=== PATIENT | female | born 1930 | race Caucasian/White ===

== ENCOUNTER → 2017-07-27 | Outpatient (CLI) | payer MEDICARE, BC ==
[~2017-07-27] MED LIST: ASPI81TA82 PO; COZA50TA PO; FOLI400T30 PO; FURO8SOL PO; METO50 PO; PRAV20 PO; RIVA20 PO; VITA400C70 PO; [UNRECOGNIZED DRUG - OTHER] PO
--- NOTE | 2017-08-06 09:23 | RSPPFT ---
DATE OF PROCEDURE: 07/27/17 COMMENTS: VOLUMES DYNAMIC: FVC and FEV1 normal. STATIC: TLC, RV and FRC normal. FLOWS: FEV1% mildly reduced; FEF 25-75 mildly reduced. DIFFUSION: Normal. FLOW VOLUME LOOP: Essentially normal configuration. IMPRESSION: Essentially normal pulmonary function. There may be mild airways obstruction although, for the age, it is probably completely normal. There is mild improvement post-bronchodilator, no reduction in diffusion, no significant hyperinflation.
== END ==
LOC: PHRSP 08:33
PROVIDERS: ATTEND Internal Medicine Interventional Cardiology
DX: R06.09 Other forms of dyspnea (principal); I27.20 Pulmonary hypertension, unspecified
CPT/HCPCS: 94060; 94726; 94729

== ENCOUNTER 2017-09-20 22:08 | Inpatient (IN) | payer MEDICARE, BC ==
[~2017-09-20] VITALS: Ht 165.1 cm; Wt 62.0 kg
[2017-09-20 22:16] VITALS: BP 180/96; PULSE 100; RESP 22; TEMP 97.7; O2SAT 97
[2017-09-20] MEDS ORDERED: SODIUM CHLOR 0.9% 1000 ML INJ 1,000 ML IV SCH (22:30)
--- NOTE | 2017-09-20 22:32 | PD ---
HPI Chief Complaint: Neuro Symptoms/ Deficits Time Seen by Provider: 22:17 Travel History International Travel<30 days: No Contact w/Intl Traveler<30days: No Traveled to known affect area: No History of Present Illness HPI 87-year-old female complaining of slurred speech and left-sided facial weakness. Patient states the symptoms started about an hour prior to arrival. Patient started having slurred speech and left-sided facial drooping. Patient denies any headache. Patient denies any visual change. Patient states that the slurring speech is getting better. Patient denies any chest pain or shortness of breath. Patient denies abdominal pain. Patient denies any focal weakness or numbness of extremity. Patient has history of atrial fibrillation and on Coumadin. Patient also has history hypertension, diabetes, hyperlipidemia. Patient is a nonsmoker. Patient has history TIA 6 years ago. Patient denies any recent fall or head injury. PFSH Past Medical History Arthritis: Yes Atrial Fibrillation: Yes Blood Disorders: No Anxiety: Yes Heart Rhythm Problems: Yes (a-fib) Cancer: No Cardiovascular Problems: Yes (CARDIOVERSION) High Cholesterol: Yes Chest Pain: No Congestive Heart Failure: No Diminished Hearing: No Endocrine: No Gastrointestinal Disorders: Yes GERD: No Glaucoma: No Genitourinary: Yes Hepatitis: No Hiatal Hernia: No Hypertension: Yes Immune Disorder: No Kidney Stones: No Musculoskeletal: Yes Neurologic: No Psychiatric: No Respiratory: No Immunizations Current: No Myocardial Infarction: No Renal Failure: No Thyroid Disease: No Ulcer: No ?: Not Menopausal: Yes Past Surgical History Abdominal Surgery: Yes Appendectomy: Yes Cholecystectomy: Yes Eye Surgery: Yes Genitourinary Surgery: Yes (BLADDER SUSPENSION) Gynecologic Surgery: Yes Hysterectomy: Yes Other Surgery: Yes Social History Alcohol Use: Yes (RARELY) Tobacco Use: No Substance Use: No Allergies-Medications (Allergen,Severity, Reaction): Coded Allergies: Sulfa (Sulfonamide Antibiotics) (Unverified Allergy, Severe, UNK, 09/20/17) penicillin G (Unverified Allergy, Severe, Hives, 09/20/17) Reported Meds & Prescriptions Reported Meds & Active Scripts Active Reported [phyto martha-mag plus] 1 Tab PO DAILY Folate (Folic Acid) 400 Mcg Tab 400 Mcg PO DAILY Xarelto 20 Mg Tab (Rivaroxaban) 20 Mg Tab 20 Mg PO DAILY Furosemide Oral Solution (Furosemide) 8 Mg/Ml Jewell 40 Mg PO DAILY Cozaar (Losartan Potassium) 50 Mg Tab 50 Mg PO DAILY Lopressor 50 Mg Tab (Metoprolol Tartrate) 50 Mg Tab 25 Mg PO BID Pravachol 20 Mg Tab (Pravastatin Sodium) 20 Mg Tab 20 Mg PO DAILY Aspir-81 (Aspirin) 81 Mg Tab 81 Mg PO DAILY Vitamin E 400 Units Cap 400 Units PO DAILY Review of Systems General / Constitutional: No: Fever Eyes: No: Visual changes HENT: No: Headaches Cardiovascular: No: Chest Pain or Discomfort Respiratory: No: Shortness of Breath Gastrointestinal: No: Abdominal Pain Genitourinary: No: Dysuria Musculoskeletal: No: Pain Skin: No Rash Neurologic: Positive: Weakness, Slurred Speech Psychiatric: No: Depression Endocrine: No: Polydipsia Hematologic/Lymphatic: No: Easy Bruising Physical Exam Narrative GENERAL: Well-nourished, well-developed patient. SKIN: Focused skin assessment warm/dry. HEAD: Normocephalic. EYES: No scleral icterus. No injection or drainage. NECK: Supple, trachea midline. No JVD or lymphadenopathy. CARDIOVASCULAR: Irregular irregular rate and rhythm without murmurs, gallops, or rubs. RESPIRATORY: Breath sounds equal bilaterally. No accessory muscle use. GASTROINTESTINAL: Abdomen soft, non-tender, nondistended. MUSCULOSKELETAL: No cyanosis, or edema. BACK: Nontender without obvious deformity. No CVA tenderness. Neurologic exam: Patient's awake and alert oriented 3. Patient has left facial weakness with not involving the forehead. Patient has mild slurred speech. Visual juarez intact. No obvious focal neurologic deficit of the extremity. Data Data Last Documented VS Vital Signs Date Time Temp Pulse Resp B/P (MAP) Pulse Ox O2 Delivery O2 Flow Rate FiO2 09/20/17 23:25 110 20 173/107 (129) 96 Nasal Cannula 2.00 09/20/17 22:16 97.7 Orders Orders Electrocardiogram (09/20/17 22:25) Complete Blood Count With Diff (09/20/17 22:25) Comprehensive Metabolic Panel (09/20/17 22:25) Prothrombin Time / Inr (Pt) (09/20/17 22:25) Act Partial Throm Time (Ptt) (09/20/17 22:25) Urinalysis - C+S If Indicated (09/20/17 22:25) Thyroid Stimulating Hormone (09/20/17 22:25) Chest, Single Ap (09/20/17 22:25) Iv Access Insert/Monitor (09/20/17 22:25) Ecg Monitoring (09/20/17 22:25) Oxygen Administration (09/20/17 22:25) Oximetry (09/20/17 22:25) [place] (09/20/17 22:25) Sodium Chlor 0.9% 1000 Ml Inj (Ns 1000 M (09/20/17 22:30) Ct Brain W/O Iv Contrast(Rout) (09/20/17 22:51) Consult Neurology (09/20/17 ) (Hub Use Only)Inp Phy Cons/Ref (09/20/17 ) Aspirin Supp (Aspirin Supp) (09/20/17 23:30) Type And Screen (09/20/17 23:18) Cta Brain W Iv Contrast W 3d (09/20/17 23:18) Cta Neck W Iv Contrast W 3d (09/20/17 23:18) Admit Order (Ed Use Only) (09/20/17 23:44) Labs Laboratory Tests Test 09/20/17 22:30 White Blood Count 7.9 TH/MM3 Red Blood Count 4.14 MIL/MM3 Hemoglobin 12.6 GM/DL Hematocrit 38.2 % Mean Corpuscular Volume 92.3 FL Mean Corpuscular Hemoglobin 30.4 PG Mean Corpuscular Hemoglobin Concent 33.0 % Red Cell Distribution Width 15.1 % Platelet Count 226 TH/MM3 Mean Platelet Volume 9.0 FL Neutrophils (%) (Auto) 62.9 % Lymphocytes (%) (Auto) 23.7 % Monocytes (%) (Auto) 7.8 % Eosinophils (%) (Auto) 4.4 % Basophils (%) (Auto) 1.2 % Neutrophils # (Auto) 5.0 TH/MM3 Lymphocytes # (Auto) 1.9 TH/MM3 Monocytes # (Auto) 0.6 TH/MM3 Eosinophils # (Auto) 0.3 TH/MM3 Basophils # (Auto) 0.1 TH/MM3 CBC Comment DIFF FINAL Differential Comment Prothrombin Time 12.3 SEC Prothromb Time International Ratio 1.2 RATIO Activated Partial Thromboplast Time 27.2 SEC Blood Urea Nitrogen 27 MG/DL Creatinine 1.39 MG/DL Random Glucose 111 MG/DL Total Protein 7.8 GM/DL Albumin 3.7 GM/DL Calcium Level 9.3 MG/DL Alkaline Phosphatase 125 U/L Aspartate Amino Transf (AST/SGOT) 38 U/L Alanine Aminotransferase (ALT/SGPT) 25 U/L Total Bilirubin 0.6 MG/DL Sodium Level 140 MEQ/L Potassium Level 4.1 MEQ/L Chloride Level 107 MEQ/L Carbon Dioxide Level 27.7 MEQ/L Anion Gap 5 MEQ/L Estimat Glomerular Filtration Rate 36 ML/MIN Thyroid Stimulating Hormone 3rd Gen 3.770 uIU/ML [facility] Medical Decision Making Medical Screen Exam Complete: Yes Emergency Medical Condition: Yes Interpretation(s) Last Impressions Head CT 09/20/17 3171 Signed Impressions: Service Date/Time: Wednesday, September 20, 2017 22:51 - CONCLUSION: 1. Atrophy and extensive chronic small vessel ischemic change. 2. No acute intracranial abnormality. Gui Cid Jr., MD 23:46 PM. CBC within normal limit. BUN 27. Creatinine 1.39. GFR 36. Glucose 111. TSH 3.77. INR 1.2. Differential Diagnosis Differential diagnosis including TIA, CVA. Narrative Course 87-year-old female with slurred speech and left-sided facial weakness. History of TIA in the past. Patient has history of atrial fibrillation and on Coumadin. Normal saline solution 100 cc an hour. O2 2 L nasal cannula. Head of bed flat. Dr. Gonzalez spoke with neurologist environmental technical officer Dr. Horn and family members. Dr. Horn advised TPA since INR is 1.2. Patient and family members does not want TPA. Dr. Horn was made aware of patient and family's decision. Advised admission, neuro check and MRI in the morning. Diagnosis Primary Impression: Acute CVA (cerebrovascular accident) Additional Impressions: Atrial fibrillation Qualified Codes: I48.2 - Chronic atrial fibrillation Chronic kidney disease (CKD) stage G3b/A3, moderately decreased glomerular filtration rate (GFR) between 30-44 mL/min/1.73 square meter and albuminuria creatinine ratio greater than 300 mg/g Admitting Information Admitting Physician Requests: Admit Lyle Ramirez MD Sep 20, 2017 22:32
[2017-09-20 22:54] LABS: BASOPHIL # 0.1 TH/MM3 (0-0.2); BASOPHIL % 1.2 % (0.0-2.0); EOSINOPHIL # 0.3 TH/MM3 (0-0.4); EOSINOPHIL % 4.4 % (0.0-4.0); HEMATOCRIT 38.2 % (35.0-46.0); HEMOGLOBIN 12.6 GM/DL (11.6-15.3); LYMPH % 23.7 % (9.0-44.0); LYMPHOCYTE # 1.9 TH/MM3 (1.0-4.8); MEAN CELL VOLUME 92.3 FL (80.0-100.0); MEAN CORPUSCULAR HEMOGLOBIN 30.4 PG (27.0-34.0); MONO % 7.8 % (0.0-8.0); MONOCYTE # 0.6 TH/MM3 (0-0.9); NEUT % 62.9 % (16.0-70.0); PLATELET COUNT 226 TH/MM3 (150-450); RED BLOOD COUNT 4.14 MIL/MM3 (4.00-5.30); RED CELL DISTRIBUTION WIDTH 15.1 % (11.6-17.2); WHITE BLOOD COUNT 7.9 TH/MM3 (4.0-11.0)
[2017-09-20 22:59] LABS: INTERNATIONAL NORMALIZED RATIO 1.2 RATIO; PROTHROMBIN TIME - PATIENT 12.3 SEC (9.8-11.6)
[2017-09-20 23:04] LABS: ALBUMIN 3.7 GM/DL (3.4-5.0); ALT (GPT) 25 U/L (10-53); AST (GOT) 38 U/L (15-37); BICARBONATE 27.7 MEQ/L (21.0-32.0); BLOOD UREA NITROGEN 27 MG/DL (7-18); CALCIUM 9.3 MG/DL (8.5-10.1); CHLORIDE 107 MEQ/L (98-107); CREATININE 1.39 MG/DL (0.50-1.00); GLOMERULAR FILTRATION RATE 36 ML/MIN (>89); GLUCOSE,RANDOM 111 MG/DL (74-106); SODIUM (NA) 140 MEQ/L (136-145)
[2017-09-20 23:06] VITALS: BP 167/101; PULSE 110; RESP 20; O2SAT 97
[2017-09-20 23:11] VITALS: RESP 14; O2SAT 98
[2017-09-20 23:14] LABS: ALKALINE PHOSPHATASE 125 U/L (45-117); TOTAL BILIRUBIN ADULT 0.6 MG/DL (0.2-1.0); TOTAL PROTEIN 7.8 GM/DL (6.4-8.2)
--- NOTE | 2017-09-20 23:17 | RADRPT ---
EXAM DATE/TIME: 09/20/2017 22:51 [facility] COMPARISON: No previous studies available for comparison. INDICATIONS : Stroke alert, altered mental status, aphasia. RADIATION DOSE: 33.52 CTDIvol (mGy) This report was called by Dr Cid to DENISA Soto at 2314 MEDICAL HISTORY : Hypertension. Cardiovascular disease SURGICAL HISTORY : Hysterectomy. ENCOUNTER: Initial ACUITY: 1 day PAIN SCALE: Non-responsive LOCATION: Bilateral head TECHNIQUE: Multiple contiguous axial images were obtained of the head. Using automated exposure control and adj ustment of the mA and/or kV according to patient size, radiation dose was kept as low as reasonably a chievable to obtain optimal diagnostic quality images. DICOM format image data is available electro nically for review and comparison. FINDINGS: CEREBRUM: Atrophy. This results in prominence of the overlying sulcal pattern in both cerebral hemispheres. Ext ensive periventricular low attenuation change involving both cerebral hemispheres. This is symmetrica l. No hemorrhage, acute infarction, or mass observed. POSTERIOR FOSSA: The cerebellum and brainstem are intact. The 4th ventricle is midline. The cerebellopontine angle i s unremarkable. EXTRACRANIAL: The visualized portion of the orbits is intact. SKULL: The calvaria is intact. No evidence of skull fracture. CONCLUSION: 1. Atrophy and extensive chronic small vessel ischemic change. 2. No acute intracranial abnormality. Gui Cid Jr., MD on September 20, 2017 at 23:11 Board Certified Radiologist. This report was verified electronically.
[2017-09-20 23:25] VITALS: BP 173/107; PULSE 110; RESP 20; O2SAT 96
[2017-09-20] MEDS ORDERED: ASPIRIN 300 MG SUPP RECTAL ONE (23:30)
--- NOTE | 2017-09-20 23:41 | PD ---
Data Data Last Documented VS Vital Signs Date Time Temp Pulse Resp B/P (MAP) Pulse Ox O2 Delivery O2 Flow Rate FiO2 09/20/17 23:25 110 20 173/107 (129) 96 Nasal Cannula 2.00 09/20/17 22:16 97.7 Orders Orders Electrocardiogram (09/20/17 22:25) Complete Blood Count With Diff (09/20/17 22:25) Comprehensive Metabolic Panel (09/20/17 22:25) Prothrombin Time / Inr (Pt) (09/20/17 22:25) Act Partial Throm Time (Ptt) (09/20/17 22:25) Urinalysis - C+S If Indicated (09/20/17 22:25) Thyroid Stimulating Hormone (09/20/17 22:25) Chest, Single Ap (09/20/17 22:25) Iv Access Insert/Monitor (09/20/17 22:25) Ecg Monitoring (09/20/17 22:25) Oxygen Administration (09/20/17 22:25) Oximetry (09/20/17 22:25) [place] (09/20/17 22:25) Sodium Chlor 0.9% 1000 Ml Inj (Ns 1000 M (09/20/17 22:30) Ct Brain W/O Iv Contrast(Rout) (09/20/17 22:51) Consult Neurology (09/20/17 ) (Hub Use Only)Inp Phy Cons/Ref (09/20/17 ) Aspirin Supp (Aspirin Supp) (09/20/17 23:30) Type And Screen (09/20/17 23:18) Cta Brain W Iv Contrast W 3d (09/20/17 23:18) Cta Neck W Iv Contrast W 3d (09/20/17 23:18) Admit Order (Ed Use Only) (09/20/17 23:44) Labs Laboratory Tests Test 09/20/17 22:30 White Blood Count 7.9 TH/MM3 Red Blood Count 4.14 MIL/MM3 Hemoglobin 12.6 GM/DL Hematocrit 38.2 % Mean Corpuscular Volume 92.3 FL Mean Corpuscular Hemoglobin 30.4 PG Mean Corpuscular Hemoglobin Concent 33.0 % Red Cell Distribution Width 15.1 % Platelet Count 226 TH/MM3 Mean Platelet Volume 9.0 FL Neutrophils (%) (Auto) 62.9 % Lymphocytes (%) (Auto) 23.7 % Monocytes (%) (Auto) 7.8 % Eosinophils (%) (Auto) 4.4 % Basophils (%) (Auto) 1.2 % Neutrophils # (Auto) 5.0 TH/MM3 Lymphocytes # (Auto) 1.9 TH/MM3 Monocytes # (Auto) 0.6 TH/MM3 Eosinophils # (Auto) 0.3 TH/MM3 Basophils # (Auto) 0.1 TH/MM3 CBC Comment DIFF FINAL Differential Comment Prothrombin Time 12.3 SEC Prothromb Time International Ratio 1.2 RATIO Activated Partial Thromboplast Time 27.2 SEC Blood Urea Nitrogen 27 MG/DL Creatinine 1.39 MG/DL Random Glucose 111 MG/DL Total Protein 7.8 GM/DL Albumin 3.7 GM/DL Calcium Level 9.3 MG/DL Alkaline Phosphatase 125 U/L Aspartate Amino Transf (AST/SGOT) 38 U/L Alanine Aminotransferase (ALT/SGPT) 25 U/L Total Bilirubin 0.6 MG/DL Sodium Level 140 MEQ/L Potassium Level 4.1 MEQ/L Chloride Level 107 MEQ/L Carbon Dioxide Level 27.7 MEQ/L Anion Gap 5 MEQ/L Estimat Glomerular Filtration Rate 36 ML/MIN Thyroid Stimulating Hormone 3rd Gen 3.770 uIU/ML [facility] Medical Record Reviewed: Yes Supervised Visit with KATHIA: No Interpretation(s) Vital Signs Date Time Temp Pulse Resp B/P (MAP) Pulse Ox O2 Delivery O2 Flow Rate FiO2 09/20/17 23:25 110 20 173/107 (129) 96 Nasal Cannula 2.00 09/20/17 23:11 14 98 Nasal Cannula 2.00 09/20/17 23:06 110 20 167/101 (123) 97 Nasal Cannula 2.00 09/20/17 23:04 100 Nasal Cannula 2.00 09/20/17 22:20 22 09/20/17 22:16 97.7 100 22 180/96 (124) 97 Laboratory Tests Test 09/20/17 22:30 White Blood Count 7.9 TH/MM3 (4.0-11.0) Red Blood Count 4.14 MIL/MM3 (4.00-5.30) Hemoglobin 12.6 GM/DL (11.6-15.3) Hematocrit 38.2 % (35.0-46.0) Mean Corpuscular Volume 92.3 FL (80.0-100.0) Mean Corpuscular Hemoglobin 30.4 PG (27.0-34.0) Mean Corpuscular Hemoglobin Concent 33.0 % (32.0-36.0) Red Cell Distribution Width 15.1 % (11.6-17.2) Platelet Count 226 TH/MM3 (150-450) Mean Platelet Volume 9.0 FL (7.0-11.0) Neutrophils (%) (Auto) 62.9 % (16.0-70.0) Lymphocytes (%) (Auto) 23.7 % (9.0-44.0) Monocytes (%) (Auto) 7.8 % (0.0-8.0) Eosinophils (%) (Auto) 4.4 % (0.0-4.0) Basophils (%) (Auto) 1.2 % (0.0-2.0) Neutrophils # (Auto) 5.0 TH/MM3 (1.8-7.7) Lymphocytes # (Auto) 1.9 TH/MM3 (1.0-4.8) Monocytes # (Auto) 0.6 TH/MM3 (0-0.9) Eosinophils # (Auto) 0.3 TH/MM3 (0-0.4) Basophils # (Auto) 0.1 TH/MM3 (0-0.2) CBC Comment DIFF FINAL Differential Comment Prothrombin Time 12.3 SEC (9.8-11.6) Prothromb Time International Ratio 1.2 RATIO Activated Partial Thromboplast Time 27.2 SEC (24.3-30.1) Blood Urea Nitrogen 27 MG/DL (7-18) Creatinine 1.39 MG/DL (0.50-1.00) Random Glucose 111 MG/DL (74-106) Total Protein 7.8 GM/DL (6.4-8.2) Albumin 3.7 GM/DL (3.4-5.0) Calcium Level 9.3 MG/DL (8.5-10.1) Alkaline Phosphatase 125 U/L (45-117) Aspartate Amino Transf (AST/SGOT) 38 U/L (15-37) Alanine Aminotransferase (ALT/SGPT) 25 U/L (10-53) Total Bilirubin 0.6 MG/DL (0.2-1.0) Sodium Level 140 MEQ/L (136-145) Potassium Level 4.1 MEQ/L (3.5-5.1) Chloride Level 107 MEQ/L (98-107) Carbon Dioxide Level 27.7 MEQ/L (21.0-32.0) Anion Gap 5 MEQ/L (5-15) Estimat Glomerular Filtration Rate 36 ML/MIN (>89) Thyroid Stimulating Hormone 3rd Gen 3.770 uIU/ML (0.358-3.740) Last Impressions Head CT 09/20/17 2251 Signed Impressions: Service Date/Time: Wednesday, September 20, 2017 22:51 - CONCLUSION: 1. Atrophy and extensive chronic small vessel ischemic change. 2. No acute intracranial abnormality. Gui Cid Jr., MD Narrative Course Was called to bedside as patient began to have stroke like symptoms. Dr. Ramirez initially saw patient - he currently is in a trauma alert Patient is an 87-year-old female who initially came to the emergency room with complaints of slurring of speech and left sided facial droop which lasted for an hour. Pateint had complete resolution of symptoms upon arrival to the emergency room. I was called to the room at 2248 as patient began to have speech deficits and left-sided facial droop. Patient's NIH scale was 10. Stroke alert was called overhead, patient was brought onto CAT scan. CT of the head was negative for intracranial hemorrhage. Patient's INR is 1.2, she is on Coumadin as she has history of atrial fibrillation. INR is 1.2. CBC & BMP Diagram 09/20/17 22:30 Total Protein 7.8, Albumin 3.7, Calcium Level 9.3, Alkaline Phosphatase 125 H, Aspartate Amino Transf (AST/SGOT) 38 H, Alanine Aminotransferase (ALT/SGPT) 25, Total Bilirubin 0.6 Ct of head with no intracranial hemorrhage. I discussed case with Dr. [id number], neurologist vocational training instructor. Patient is within the window for TPA, though patient would be at high risk for intracranial hemorrhage. If patient as well as family consent for TPA - will administer after signed consent. I did talk to patient who understands her diagnosis, understands that TPA candidate given her symptoms. Patient at this time refuses TPA. I also discussed with patient's son and daughters indications as well as contraindications for TPA, but family does not want to be given at this time. Rectal Aspirin ordered. Dr. Calvo request no other studies at this time Vanita Gonzalez DO Sep 20, 2017 23:41
[2017-09-20] MEDS ORDERED: METO50TA PO (23:52)
[2017-09-20] MEDS ORDERED: TRAM50TA PO (23:52)
[2017-09-20] MEDS ORDERED: WARF4TAB52 PO (23:52)
[2017-09-20] MEDS ORDERED: PRAV20TA2 PO (23:52)
[2017-09-20] MEDS ORDERED: POTA-163 PO (23:52)
[2017-09-20] MEDS ORDERED: FURO40TA PO (23:52)
[2017-09-20] MEDS ORDERED: WARF4TAB51 PO ×2 (23:52)
[2017-09-21] VITALS (15 sets, daily range): BP systolic 137–175; BP diastolic 82–114; PULSE 94–120; RESP 16–31; TEMP 97.3–98.9; O2SAT 91–97
--- NOTE | 2017-09-21 00:13 | RADRPT ---
EXAM DATE/TIME: 09/20/2017 23:44 [facility] COMPARISON: CHEST SINGLE AP, November 05, 2012, 23:57. INDICATIONS : Short of breath, CVA. MEDICAL HISTORY : None. SURGICAL HISTORY : None. ENCOUNTER: Initial ACUITY: 1 day PAIN SCORE: 0/10 LOCATION: Bilateral chest FINDINGS: A single portable frontal view the chest shows mild cardiomegaly. Chronic interstitial changes. No pn eumothorax or effusion. No intraalveolar infiltrate. A scoliotic and degenerative spine. Right harshil l head intramedullary tiburcio. CONCLUSION: 1. Cardiomegaly and chronic interstitial changes. 2. No acute intrathoracic abnormality. Gui Cid Jr., MD on September 21, 2017 at 0:11 Board Certified Radiologist. This report was verified electronically.
[2017-09-21] MEDS: SODIUM CHLOR 0.9% 1000 ML INJ 1,000 ML IV SCH ×2 (00:33→14:13)
--- NOTE | 2017-09-21 00:42 | HHI.HP ---
HPI Service Critical Care Medicine Primary Care Physician Unknown Admission Diagnosis acute CVA. Atrial fibrillation. On anticoagulation. Diagnosis: (1) Atrial fibrillation Diagnosis: Secondary (2) Bacteriuria Diagnosis: Secondary (3) Aphasia Diagnosis: Principal (4) HTN (hypertension) Diagnosis: Secondary (5) HLD (hyperlipidemia) Diagnosis: Secondary (6) CKD (chronic kidney disease) stage 3, GFR 30-59 ml/min Diagnosis: Secondary (7) Acute ischemic stroke Diagnosis: Principal (8) Warfarin anticoagulation Diagnosis: Secondary (9) TSH elevation Diagnosis: Secondary (10) Elevated AST (SGOT) Diagnosis: Secondary Travel History International Travel<30 Days: No Contact w/Intl Traveler <30 Da: No Traveled to Known Affected Are: No History of Present Illness 87-year-old female with past medical history of hypertension, atrial fibrillation on chronic anticoagulation with Coumadin, hyperlipidemia, prior tobacco abuse who presented to [facility] emergency department as a stroke alert. Her son states that she was sitting in a recliner around 9 pm and he was speaking to her and she did not respond but he thought she might be sleeping. Then she began to move around restlessly in the chair and had apparent aphasia and facial droop. [facility] was summoned and when they arrived her symptoms had completely resolved. She was speaking normally. Then she stood up and symptoms recurred so [facility] brought her in as a stroke alert. CT brain demonstrated atrophy with chronic small vessel ischemic changes. She is on warfarin but her INR was 1.2. Case was discussed with Dr. Horn who stated that TPA could be administered as long as patient and family accepting of increased risk of hemorrhage. Patient refused TPA. Dr. Horn recommended ASA and obtain MRI/MRA in the morning. Recommended against anticoagulation. Review of Systems ROS Limitations: Clinical Condition, Speech Impaired Past Family Social History Allergies: Coded Allergies: Sulfa (Sulfonamide Antibiotics) (Unverified Allergy, Severe, UNK, 09/20/17) penicillin G (Unverified Allergy, Severe, Hives, 09/20/17) Past Medical History Atrial fibrillation on chronic anticoagulation with warfarin Hypertension Hypercholesterolemia Arthritis Past Surgical History Cholecystectomy Bladder suspension Hysterectomy Dental implants Cataract surgery bilateral Reported Medications Warfarin. Her family was not clear on the dose of warfarin that she is currently on. Her pteyufzy-hi-lkx states she will bring it in tomorrow. Pravastatin 20 mill grams by mouth daily Metoprolol 50 g by mouth twice a day Tramadol 50 mg by mouth every 8 hours as needed for pain Potassium chloride 20 mEq ER by mouth daily Lasix 40 mill grams by mouth daily Calcium and magnesium supplement Family History Mother at age 89 of unknown cause Father in his 30s or 40s after motor vehicle crash A brother and sister both have Parkinson's 2 sisters of breast cancer Social History Smoked a pack of cigarettes per day for 40 years. 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 They were at bedside. Lives alone Physical Exam Vital Signs Vital Signs Date Time Temp Pulse Resp B/P (MAP) Pulse Ox O2 Delivery O2 Flow Rate FiO2 09/21/17 00:34 106 20 151/94 (113) 96 Nasal Cannula 2.00 09/20/17 23:25 110 20 173/107 (129) 96 Nasal Cannula 2.00 09/20/17 23:11 14 98 Nasal Cannula 2.00 09/20/17 23:06 110 20 167/101 (123) 97 Nasal Cannula 2.00 09/20/17 23:04 100 Nasal Cannula 2.00 09/20/17 22:20 22 09/20/17 22:16 97.7 100 22 180/96 (124) 97 Physical Exam GENERAL: Well-nourished well-developed elderly female who is sitting up in the ED stretcher, agitated and indicating that she needs to urinate. SKIN: Warm and dry, well perfused HEAD: Atraumatic. Normocephalic. EYES: Pupils equal and round, 2 mm and reactive bilaterally. No scleral icterus. No injection or drainage. ENT: No nasal bleeding or discharge. Mucous membranes pink and moist. NECK: Trachea midline. No JVD. CARDIOVASCULAR: Irregularly irregular with rate in the 110s. No murmurs rubs or gallops RESPIRATORY: Breathing comfortably with No accessory muscle use. Clear to auscultation. Breath sounds equal bilaterally. GASTROINTESTINAL: Abdomen soft, non-tender, nondistended. Bowel sounds present. MUSCULOSKELETAL: Extremities without clubbing, cyanosis, or edema. Deformities of toes on right foot. NEUROLOGICAL: Awake and alert. Aphasic, utters sounds only, no words. Extraocular movements are full. Visual juarez appear intact. Normal tongue protrusion. R facial droop. Strength 4+-5/5 biceps/triceps, 5/5 hip flexion/ hamstrings/ankle dorsiflexion/plantar flexion. No abnormal response to Babinski. She nods that sensation is intact. Laboratory Laboratory Tests Test 09/20/17 22:30 09/21/17 00:15 White Blood Count 7.9 Red Blood Count 4.14 Hemoglobin 12.6 Hematocrit 38.2 Mean Corpuscular Volume 92.3 Mean Corpuscular Hemoglobin 30.4 Mean Corpuscular Hemoglobin Concent 33.0 Red Cell Distribution Width 15.1 Platelet Count 226 Mean Platelet Volume 9.0 Neutrophils (%) (Auto) 62.9 Lymphocytes (%) (Auto) 23.7 Monocytes (%) (Auto) 7.8 Eosinophils (%) (Auto) 4.4 Basophils (%) (Auto) 1.2 Neutrophils # (Auto) 5.0 Lymphocytes # (Auto) 1.9 Monocytes # (Auto) 0.6 Eosinophils # (Auto) 0.3 Basophils # (Auto) 0.1 CBC Comment DIFF FINAL Differential Comment Prothrombin Time 12.3 Prothromb Time International Ratio 1.2 Activated Partial Thromboplast Time 27.2 Blood Urea Nitrogen 27 Creatinine 1.39 Random Glucose 111 Total Protein 7.8 Albumin 3.7 Calcium Level 9.3 Alkaline Phosphatase 125 Aspartate Amino Transf (AST/SGOT) 38 Alanine Aminotransferase (ALT/SGPT) 25 Total Bilirubin 0.6 Sodium Level 140 Potassium Level 4.1 Chloride Level 107 Carbon Dioxide Level 27.7 Anion Gap 5 Estimat Glomerular Filtration Rate 36 Thyroid Stimulating Hormone 3rd Gen 3.770 Result Diagram: 09/20/17222909/20/172229 Caprini VTE Risk Assessment Caprini VTE Risk Assessment: Mod/High Risk (score >= 2) VTE Pharm Contraindication: acute stroke with risk of hemorrhagic conversion. Caprini Risk Assessment Model Point Value = 1 Point Value = 2 Point Value = 3 Point Value = 5 Age 41-60 Minor surgery BMI > 25 kg/m2 Swollen legs Varicose veins or History of unexplained or recurrent spontaneous Oral contraceptives or hormone replacement Sepsis (< 1 month) Serious lung disease, including pneumonia (< 1 month) Abnormal pulmonary function Acute myocardial infarction Congestive heart failure (< 1 month) History of inflammatory bowel disease Medical patient at bed rest Age 61-74 Arthroscopic surgery Major open surgery (> 45 min) Laparoscopic surgery (> 45 min) Malignancy Confined to bed (> 72 hours) Immobilizing plaster cast Central venous access Age >= 75 History of VTE Family history of VTE Factor V Leiden Prothrombin [id number] Lupus anticoagulant Anticardiolipin antibodies Elevated serum homocysteine Heparin-induced thrombocytopenia Other congenital or acquired thrombophilia Stroke (< 1 month) Elective arthroplasty Hip, pelvis, or leg fracture Acute spinal cord injury (< 1 month) Prophylaxis Regimen Total Risk Factor Score Risk Level Prophylaxis Regimen 0-1 Low Early ambulation 2 Moderate Order ONE of the following: *Sequential Compression Device (SCD) *Heparin 5000 units SQ BID 3-4 Higher Order ONE of the following medications: *Heparin 5000 units SQ TID *Enoxaparin/Lovenox 40 mg SQ daily (WT < 150 kg, CrCl > 30 mL/min) *Enoxaparin/Lovenox 30 mg SQ daily (WT < 150 kg, CrCl > 10-29 mL/min) *Enoxaparin/Lovenox 30 mg SQ BID (WT < 150 kg, CrCl > 30 mL/min) AND/OR *Sequential Compression Device (SCD) 5 or more Highest Order ONE of the following medications: *Heparin 5000 units SQ TID (Preferred with Epidurals) *Enoxaparin/Lovenox 40 mg SQ daily (WT < 150 kg, CrCl > 30 mL/min) *Enoxaparin/Lovenox 30 mg SQ daily (WT < 150 kg, CrCl > 10-29 mL/min) *Enoxaparin/Lovenox 30 mg SQ BID (WT < 150 kg, CrCl > 30 mL/min) AND *Sequential Compression Device (SCD) Assessment and Plan Problem List: (1) Acute ischemic stroke ICD Code: I63.9 - Cerebral infarction, unspecified Status: Acute (2) Warfarin anticoagulation ICD Code: Z79.01 - long-term (current) use of anticoagulants Status: Chronic (3) Atrial fibrillation ICD Code: I48.91 - Unspecified atrial fibrillation Status: Chronic (4) HTN (hypertension) ICD Code: I10 - Essential (primary) hypertension Status: Chronic (5) HLD (hyperlipidemia) ICD Code: E78.5 - Hyperlipidemia, unspecified Status: Chronic (6) TSH elevation ICD Code: R94.6 - Abnormal results of thyroid function studies (7) Aphasia ICD Code: R47.01 - Aphasia Status: Acute (8) CKD (chronic kidney disease) stage 3, GFR 30-59 ml/min ICD Code: N18.3 - Chronic kidney disease, stage 3 (moderate) Status: Chronic (9) Elevated AST (SGOT) ICD Code: R74.0 - Nonspecific elevation of levels of transaminase and lactic acid dehydrogenase [LDH] Status: Chronic (10) Bacteriuria ICD Code: R82.71 - Bacteriuria (11) Quit using tobacco in remote past ICD Code: Z91.89 - Other specified personal risk factors, not elsewhere classified Status: Chronic Assessment and Plan NEURO: Acute ischemic stroke Aphasia Head of bed flat Neuro checks every hour Tylenol as needed for temp greater than 100.4 Rectal aspirin 300 mg MS now MRI/MRA brain/carotids in a.m. Neurology consult, Dr. Horn PT/OT/speech therapy consult Check echo, hemoglobin A1c, lipid panel. RESP: History of tobacco abuse Nasal cannula wean as tolerated. Monitor for airway protection. Patient is agreeable to short term intubation if needed for airway protection Albuterol as needed for wheezing CV: Atrial fibrillation on chronic anticoagulation with warfarin Essential hypertension Hyperlipidemia Monitor hemodynamics. Permissive hypertension Labetalol as needed for systolic blood pressure greater than 220/120. 0.9 NaCl at 70 mL per hour Hold warfarin as unable to take po. Dr. Ramirez discussed with Dr. Calvo, avoid anticoagulation due to concern for hemorrhagic conversion. Hold home medications at this point because unable to take po: Metoprolol 50 g by mouth twice a day, pravastatin 20 mill grams by mouth daily, Lasix 40 mill grams by mouth daily, potassium chloride 20 mEq by mouth daily GI: Chronic Mild AST elevation ?statin. Does not preclude statin use. Nothing by mouth. Speech therapy to evaluate swallow. Bowel regimen FEN/RENAL: Chronic kidney disease stage III Purewick catheter Monitor intake and output. Monitor electrolytes. Replace electrolytes as indicated per ICU electrolyte replacement protocol. ID: Bacteruria Followup urine culture. HEME: Chronic anticoagulation with warfarin for Afib INR 1.2 on presentation. Patient reportedly had an INR of 1.9 on 09/15/17 and was instructed to avoid vitamin K containing foods. Unclear what warfarin dose she was on. ENDO: TSH elevated Follow-up free T4/free T3 Euglycemic. Follow-up hemogram A1c. PROPH: SCDs for DVT prophylaxis. Pharmacologic DVT prophylaxis when appropriate in coordination with neurology. Famotidine for stress ulcer prophylaxis. ACCESS: Peripheral IV providing adequate access at this time CODE STATUS discussed with patient while esazqdhb-zk-rlt and son were at bedside. Patient states she would be agreeable to intubation short-term if needed for airway protection. She would not want ACLS or intubation in the event of pulseless arrest. Ordered alternate code intubation only Discussed with Dr. Ramirez and Dr. Gonzalez who discussed desired management and imaging with Dr. Horn. Level 3 H&P Problem Qualifiers (1) HTN (hypertension): Qualified Codes: I10 - Essential (primary) hypertension Chely Mesa MD Sep 21, 2017 00:42
[2017-09-21 00:43] LABS: BACTERIA, URINE RARE /hpf; BILIRUBIN, URINE NEG (NEG); BLOOD, URINE SMALL (NEG); GLUCOSE,URINE NEG (NEG); HYALINE CAST, URINE 12 /lpf (RARE); KETONE, URINE NEG (NEG); MUCUS URINE FEW /lpf (OCC); NITRITE,URINE NEG (NEG); PH, URINE 5.5 (5.0-8.5); SQUAMOUS EPITHELIAL CELL URINE 14 /hpf (0-5); TRANSITIONAL EPI CELLS, URINE <1 /hpf; URINE COLOR YELLOW (YELLW/STRAW); URINE LEUKOCYTE ESTERASE MOD (NEG)
[2017-09-21] MEDS ORDERED: MAGNESIUM HYDROXIDE SUSP 30 ML CUP PO PRN (00:45)
[2017-09-21] MEDS ORDERED: SENNOSIDES 8.6 MG TAB PO PRN (00:45)
[2017-09-21] MEDS ORDERED: LACTULOSE SYRUP 20 GM/30 ML CUP PO PRN (00:45)
[2017-09-21] MEDS ORDERED: RESP: ALBUTEROL 2.5 MG/3 ML NEB (PRN) INH (00:45)
[2017-09-21] MEDS ORDERED: ONDANSETRON HCL 4 MG/2 ML VIAL IV PUSH PRN (00:45)
[2017-09-21] MEDS ORDERED: CHLORHEXIDINE GLUCONATE 2 % 1 PACK (2 CLOTHS) TOP PRN (00:45)
[2017-09-21] MEDS ORDERED: SODIUM CHLORIDE 0.9% FLUSH 10 ML FLUSH IV FLUSH PRN (00:45)
[2017-09-21] MEDS ORDERED: MISCELLANEOUS NURSING INFORMATION XX SCH (00:45)
[2017-09-21] MEDS ORDERED: BISACODYL 10 MG SUPP RECTAL PRN (00:45)
[2017-09-21] MEDS ORDERED: ACETAMINOPHEN 650 MG SUPP RECTAL PRN (02:45)
[2017-09-21] MEDS: CHLORHEXIDINE GLUCONATE 2 % 1 PACK (2 CLOTHS) TOP SCH (03:36)
[2017-09-21] MEDS ORDERED: hydrALAZINE HCL 20 MG/ML VIAL IV PUSH PRN (05:00)
[2017-09-21] MEDS ORDERED: LABETALOL HCL 100 MG/20 ML VIAL IV PUSH PRN (05:00)
[2017-09-21 05:44] LABS: CHOLESTEROL 137 MG/DL (120-200); TRIGLYCERIDES 35 MG/DL (42-150)
[2017-09-21 05:54] LABS: CHOLESTEROL/ HDL RATIO 2.11 RATIO; FREE T4 1.18 NG/DL (0.76-1.46); HDL CHOLESTEROL 64.9 MG/DL (40.0-60.0); LDL CHOLESTEROL 65 MG/DL (0-99)
[2017-09-21] MEDS: FAMOTIDINE 20 MG/2 ML VIAL IV PUSH SCH ×2 (08:04→21:21)
[2017-09-21] MEDS: SODIUM CHLORIDE 0.9% FLUSH 10 ML FLUSH IV FLUSH SCH ×2 (08:04→21:00)
[2017-09-21] MEDS: DOCUSATE SODIUM 50 MG/SENNA 8.6 MG TAB PO SCH ×2 (08:04→21:21)
[2017-09-21] MEDS: FAMOTIDINE 20 MG TAB PO SCH ×3 (08:04→21:21)
[2017-09-21] MEDS ORDERED: GADOBENATE DIM PF 529 MG/ML 20ML VIAL (for RAD MRI) IV ONE (09:39)
--- NOTE | 2017-09-21 10:38 | MB ---
cc: NIKITA LINARES M.D. DATE OF CONSULTATION 09/21/2017 REASON FOR CONSULTATION The patient is an 87-year-old woman seen in neurological consultation in regards to a stroke. HISTORY OF PRESENT ILLNESS She came in last evening as a Stroke Alert and the patient apparently declined TPA. She had the onset of symptoms around 9:00 p.m. and her son observed the patient to have some altered mentation and apparently thought she was falling asleep and she became restless and then was noted to be aphasic with a slight facial droop. She improved but her symptoms recurred upon standing up. She had an INR of 1.2. She is on chronic Coumadin therapy for atrial fibrillation. She was admitted and this morning she is observed to have some residual language dysfunction. PAST MEDICAL HISTORY There is also a history of hypertension and hyperlipidemia. MEDICATIONS Besides warfarin she takes: Pravastatin. Metoprolol. Tramadol. Potassium. Lasix. Calcium and magnesium supplements. NEUROLOGICAL EXAMINATION She is awake and appeared alert. She has fairly good comprehension and tries to follow tasks. She starts mumbling but her speech is really non-comprehensible. When I give her a choice of answers such as place, etc., she seems to pickler helper the appropriate choice. She follows commands in terms of providing a motor test. Moves all four extremities with some mild right hemiparesis. Rn Peritoneal Dialysis is mildly weak on the right in comparison to the left and there is mild right facial weakness. She seems to be able to count fingers on the right and left grossly equally. Reflexes are diminished but present at the elbows and knees, probably absent at the ankles. Plantar response is extensor on the right and flexor on the left. Position sense is grossly appropriate in the distal lower extremities. IMAGING The MRI brain was just completed. There is acute small to mid size area of restriction in the diffusion imaging, left middle cerebral artery distribution. MRA head and neck were apparently completed as well. There is no report and am awaiting additional images. The initial CT brain shows atrophy and small vessel disease per report. LABORATORY CBC essentially normal. As above the INR was 1.2 with pro-time 12.3. Chemistry with BUN 27, creatinine 1.39, sodium and potassium normal, glucose 111. EKG EKG through the emergency room was completed. I was unable to see the image as it is not loading in this system. 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 The patient declined TPA. PLAN/RECOMMENDATIONS Awaiting MRA head and neck images and report. Her symptomatology apparently started around 9:00 p.m. yesterday over 12 hours. Depending upon the results will discuss with radiology the possibility of intervention at this point. Another option will be anticoagulation with heparin while she is started back on Coumadin to achieve a therapeutic INR. I will follow the neurological course. Thank you for asking us to assist in her care. I will be discussing this with the cut out worker as well. MD MARIA LUISA Wing/BT /10:00 AM /10:14 AM
--- NOTE | 2017-09-21 12:08 | RADRPT ---
EXAM DATE/TIME: 09/21/2017 09:18 [facility] COMPARISON: CT BRAIN W/O CONTRAST, September 20, 2017, 22:51. INDICATIONS : Altered mental status. Aphasia. Stroke alert yesterday. MEDICAL HISTORY : Renal insufficiency, chronic. Hypertension. SURGICAL HISTORY : Cholecystectomy. Hysterectomy. Cataracts. Right arm rodding. ENCOUNTER: Subsequent ACUITY: 2 day PAIN SCORE: 0/10 LOCATION: head. TECHNIQUE: Multiplanar, multisequence MRI of the brain was performed without contrast. FINDINGS: There is an area of restriction diffusion capacity in the left mid parietal lobe along the krause white junction characteristic of acute infarction without hemorrhage or mass effect. Moderate degree of brain atrophy is seen. Moderate periventricular white matter changes are seen nonspecific mostly c onsistent with chronic small vessel ischemic changes. There is chronic sinusitis within multiple sinu ses. CONCLUSION: Acute infarction on the left without hemorrhage or mass effect. Denita Moser MD on September 21, 2017 at 11:53 Board Certified Radiologist. This report was verified electronically.
--- NOTE | 2017-09-21 12:10 | RADRPT ---
EXAM DATE/TIME: 09/21/2017 09:18 [facility] COMPARISON: MRA CAROTIDS W CONTRAST, September 21, 2017, 9:18. MRI BRAIN W/O CONTRAST, September 21, 2017, 9:18. INDICATIONS : Altered mental status. Aphasia. Stroke alert yesterday. MEDICAL HISTORY : Hypertension. Renal insufficiency, chronic. SURGICAL HISTORY : Cholecystectomy. Hysterectomy. Cataracts. Right arm rodding. ENCOUNTER: Subsequent ACUITY: 2 day PAIN SCORE: 0/10 LOCATION: head. Please note a normal MRA of the brain does not entirely exclude the possibility of a small aneurysm, nor the possibility of distal intracranial vessel disease. TECHNIQUE: 3D time of flight MRA was performed. Source images, multiplanar STS MIP, and 3D volume MIP reconstru ctions were reviewed. FINDINGS: No significant vascular malformations, vessel truncation or aneurysmal dilatations are seen except fo r slight atherosclerotic changes involving multiple branches bilaterally mainly the MCAs. CONCLUSION: Slight atherosclerotic changes of distal branches bilaterally, otherwise unremarkable . Denita Moser MD on September 21, 2017 at 12:06 Board Certified Radiologist. This report was verified electronically.
--- NOTE | 2017-09-21 12:10 | RADRPT ---
EXAM DATE/TIME: 09/21/2017 09:18 [facility] COMPARISON: No previous studies available for comparison. INDICATIONS : Stenosis. Aphasia. Stroke alert yesterday. CONTRAST: 20 cc Multihance (gadobenate) IV MEDICAL HISTORY : Renal insufficiency, chronic. Hypertension. SURGICAL HISTORY : Cholecystectomy. Hysterectomy. Cataracts. Right arm rodding. ENCOUNTER: Subsequent ACUITY: 2 day PAIN SCORE: 0/10 LOCATION: neck. Percent stenosis is calculated using the diameter of the stenotic region over the diameter of the nor mal distal internal carotid artery. TECHNIQUE: Bolus infused MRA of the extracranial circulation was performed using a neurovascular coil. Post pro cessing was performed including rotating subvolume maximum intensity projections of each carotid raj ry, rotating full volume maximum intensity projections of both carotid arteries, sagittal and coronal sliding thin slab reformations of each carotid artery, and left oblique sliding thin slab reformatio n through the aortic arch to include the origin of the arch branch vessels. FINDINGS: AORTIC ARCH: There is a three vessel origin of the great vessels from the aorta. No evidence of ostial narrowing. RIGHT CAROTID: The common carotid artery is intact. The carotid bulb has a normal configuration without ulceration or narrowing. The internal carotid artery lumen is smooth without stenosis. The external carotid ar latanya is intact. LEFT CAROTID: The common carotid artery is intact. The carotid bulb has a normal configuration without ulceration or narrowing. The internal carotid artery lumen is smooth without stenosis. The external carotid ar latanya is intact. VERTEBRALS: The vertebral arteries have a symmetric diameter. No stenotic lesions are seen. CONCLUSION: Normal examination. Denita Moser MD on September 21, 2017 at 12:08 Board Certified Radiologist. This report was verified electronically.
[2017-09-21] MEDS: traMADol HCL 50 MG TAB PO PRN ×2 (14:15→22:33)
[2017-09-21 16:02] LABS: HEMOGLOBIN A1C 5.9 % (4.3-6.0)
--- NOTE | 2017-09-21 17:07 | EKG ---
Date Performed: 09/20/2017 Time Performed: 22:23:19 PTAGE: 87 years EKG: ATRIAL FIBRILLATION MINIMAL VOLTAGE CRITERIA FOR LVH, CONSIDER NORMAL VARIANT ST DEVIATION AND MODERATE T-WAVE ABNORMALITY, CONSIDER LATERAL ISCHEMIA. When compared to previous tracing, royer shell is now in an atrial Fibrillation, with a moderate ventricular response. ABNORMAL ECG PREVIOUS TRACING : 11/07/2012 08.28.34 DOCTOR: Silva Suarez Interpretating Date/Time 09/21/2017 17:06:06
[2017-09-21] MEDS: ENOXAPARIN SODIUM 60 MG/0.6 ML SYRINGE SQ SCH (18:41)
[2017-09-22] VITALS (9 sets, daily range): BP systolic 138–185; BP diastolic 70–92; PULSE 80–119; RESP 18–34; TEMP 97.1–98.6; O2SAT 94–100
[2017-09-22 03:46] LABS: AUTOMATED NEUTROPHIL # 8.4 TH/MM3 (1.8-7.7); BASOPHIL # 0.1 TH/MM3 (0-0.2); BASOPHIL % 0.5 % (0.0-2.0); EOSINOPHIL # 0.1 TH/MM3 (0-0.4); EOSINOPHIL % 0.5 % (0.0-4.0); HEMATOCRIT 36.1 % (35.0-46.0); HEMOGLOBIN 12.1 GM/DL (11.6-15.3); LYMPH % 11.3 % (9.0-44.0); LYMPHOCYTE # 1.2 TH/MM3 (1.0-4.8); MEAN CELL VOLUME 91.8 FL (80.0-100.0); MEAN CORPUSCULAR HEMOGLOBIN 30.7 PG (27.0-34.0); MEAN CORPUSCULAR HGB CONC 33.4 % (32.0-36.0); MEAN PLATELET VOLUME 9.2 FL (7.0-11.0); MONO % 7.9 % (0.0-8.0); MONOCYTE # 0.8 TH/MM3 (0-0.9); NEUT % 79.8 % (16.0-70.0); PLATELET COUNT 186 TH/MM3 (150-450); RED BLOOD COUNT 3.93 MIL/MM3 (4.00-5.30); RED CELL DISTRIBUTION WIDTH 15.1 % (11.6-17.2); WHITE BLOOD COUNT 10.5 TH/MM3 (4.0-11.0)
[2017-09-22 03:53] LABS: INTERNATIONAL NORMALIZED RATIO 1.3 RATIO; PROTHROMBIN TIME - PATIENT 13.3 SEC (9.8-11.6)
[2017-09-22 03:58] LABS: ALBUMIN 3.5 GM/DL (3.4-5.0); ALT (GPT) 17 U/L (10-53); AST (GOT) 26 U/L (15-37); BICARBONATE 25.9 MEQ/L (21.0-32.0); BLOOD UREA NITROGEN 20 MG/DL (7-18); CALCIUM 9.2 MG/DL (8.5-10.1); CHLORIDE 110 MEQ/L (98-107); CREATININE 0.92 MG/DL (0.50-1.00); GLOMERULAR FILTRATION RATE 57 ML/MIN (>89); GLUCOSE,RANDOM 114 MG/DL (74-106); MAGNESIUM 1.9 MG/DL (1.5-2.5); PHOSPHORUS 2.5 MG/DL (2.5-4.9); SODIUM (NA) 145 MEQ/L (136-145)
[2017-09-22 04:00] LABS: ALKALINE PHOSPHATASE 89 U/L (45-117); TOTAL BILIRUBIN ADULT 1.1 MG/DL (0.2-1.0); TOTAL PROTEIN 7.1 GM/DL (6.4-8.2)
[2017-09-22] MEDS: CHLORHEXIDINE GLUCONATE 2 % 1 PACK (2 CLOTHS) TOP SCH ×2 (04:00→23:52)
[2017-09-22] MEDS: SODIUM CHLOR 0.9% 1000 ML INJ 1,000 ML IV SCH (05:09)
[2017-09-22] MEDS: ENOXAPARIN SODIUM 60 MG/0.6 ML SYRINGE SQ SCH ×2 (05:23→18:00)
[2017-09-22] MEDS: PRAVASTATIN SOD 20 MG TAB PO SCH (07:23)
[2017-09-22] MEDS: POTASSIUM CHLORIDE 20 MEQ CONTROLLED RELEASE TAB PO SCH (07:23)
[2017-09-22] MEDS: METOPROLOL TARTRATE 50 MG TAB PO SCH ×2 (07:23→22:09)
[2017-09-22] MEDS: FAMOTIDINE 20 MG/2 ML VIAL IV PUSH SCH ×2 (07:23→21:00)
[2017-09-22] MEDS: FAMOTIDINE 20 MG TAB PO SCH ×2 (07:23→21:00)
[2017-09-22] MEDS: FUROSEMIDE 40 MG TAB PO SCH (07:24)
[2017-09-22] MEDS: SODIUM CHLORIDE 0.9% FLUSH 10 ML FLUSH IV FLUSH SCH ×2 (07:24→22:10)
[2017-09-22] MEDS: DOCUSATE SODIUM 50 MG/SENNA 8.6 MG TAB PO SCH ×2 (07:24→21:00)
--- NOTE | 2017-09-22 07:39 | HHI.CCPN ---
Subjective Remarks/Hospital Course clinically improving. at the request of Dr. Briceño, started therapeutic lovenox 1mg/kg SQ q12h and will bridge to coumadin. in discussion with family, patient had accidentally placed 1/2 her normal home dose of coumadin in her pill box, which is why she was sub-therapeutic. Her home dose is typically 2.5mg 5 days a week and 5mg 2 days a week. her dysarthria is improving and her strength is improving. passed swallow eval. denies complaints. ROS negative. Objective Vital Signs Date Time Temp Pulse Resp B/P (MAP) Pulse Ox O2 Delivery O2 Flow Rate FiO2 09/22/17 04:00 98.5 109 25 185/80 (115) 98 09/21/17 20:07 Nasal Cannula 3.00 Intake and Output 09/22/17 09/22/17 09/23/17 08:00 16:00 00:00 Intake Total 240 ml Balance 240 ml Result Diagram: 09/22/17 03309/22/17 033 Objective Remarks GENERAL: elderly female, lying in bed, no acute distress. SKIN: Warm and dry, well perfused HEAD: Atraumatic. Normocephalic. EYES: Pupils equal and round, 2 mm and reactive bilaterally. No scleral icterus. No injection or drainage. ENT: No nasal bleeding or discharge. Mucous membranes pink and moist. NECK: Trachea midline. No JVD. CARDIOVASCULAR: Irregularly irregular with rate in the 110s. afib by tele. RESPIRATORY: Breathing comfortably with No accessory muscle use. equal chest rise. nc o2. GASTROINTESTINAL: Abdomen soft, non-tender, nondistended. MUSCULOSKELETAL: Extremities without clubbing, cyanosis, or edema. Deformities of toes on right foot. NEUROLOGICAL: Awake and alert. slightly dysarthric. aphasia has resolved. very slight facial droop, much improved. UMANG 4+/5 LUE proximally, otherwise 5/5. A/P Problem List: (1) Acute ischemic stroke ICD Code: I63.9 - Cerebral infarction, unspecified Status: Acute (2) Warfarin anticoagulation ICD Code: Z79.01 - residential (current) use of anticoagulants Status: Chronic (3) Atrial fibrillation ICD Code: I48.91 - Unspecified atrial fibrillation Status: Chronic (4) HTN (hypertension) ICD Code: I10 - Essential (primary) hypertension Status: Chronic (5) HLD (hyperlipidemia) ICD Code: E78.5 - Hyperlipidemia, unspecified Status: Chronic (6) TSH elevation ICD Code: R94.6 - Abnormal results of thyroid function studies (7) Aphasia ICD Code: R47.01 - Aphasia Status: Acute (8) CKD (chronic kidney disease) stage 3, GFR 30-59 ml/min ICD Code: N18.3 - Chronic kidney disease, stage 3 (moderate) Status: Chronic (9) Elevated AST (SGOT) ICD Code: R74.0 - Nonspecific elevation of levels of transaminase and lactic acid dehydrogenase [LDH] Status: Chronic (10) Bacteriuria ICD Code: R82.71 - Bacteriuria (11) Quit using tobacco in remote past ICD Code: Z91.89 - Other specified personal risk factors, not elsewhere classified Status: Chronic Assessment and Plan Assessment: 87yF with afib, subtherapeutic on her coumadin who presents with acute CVA with improving deficits. stable for transfer to floor. coumadinize and will need stroke rehab. NEURO: Acute ischemic stroke Aphasia- resolved. Dysarthria - improving. ASA Tylenol as needed for temp greater than 100.4 MRI/MRA brain: small left brain CVA Neurology consult, Dr. Briceño PT/OT/speech therapy consult f/u echo, RESP: History of tobacco abuse Nasal cannula wean as tolerated. Albuterol as needed for wheezing CV: Atrial fibrillation on chronic anticoagulation with warfarin Essential hypertension Hyperlipidemia Monitor hemodynamics. restart warfarin with pharmacy assistance. restart lopressor, pravastatin, lasix, kcl. GI: Chronic Mild AST elevation ?statin. Does not preclude statin use. regular diet. Bowel regimen FEN/RENAL: Chronic kidney disease stage III Monitor intake and output. Monitor electrolytes. Replace electrolytes as indicated per ICU electrolyte replacement protocol. ID: Bacteruria Followup urine culture. HEME: Chronic anticoagulation with warfarin for Afib INR 1.2 on presentation. Patient reportedly had an INR of 1.9 on 09/15/17 and was instructed to avoid vitamin K containing foods. restart ENDO: TSH elevated T4/free T3: wnl. sick euthyroid. Euglycemic. Follow-up hemogram A1c. PROPH: SCDs for DVT prophylaxis. Pharmacologic DVT prophylaxis when appropriate in coordination with neurology. Famotidine for stress ulcer prophylaxis. ACCESS: Peripheral IV providing adequate access at this time CODE STATUS discussed with patient while [id number] and son were at bedside. Patient states she would be agreeable to intubation short-term if needed for airway protection. She would not want ACLS or intubation in the event of pulseless arrest. Ordered alternate code intubation only Problem Qualifiers (1) HTN (hypertension): Qualified Codes: I10 - Essential (primary) hypertension Narinder Arredondo MD Sep 22, 2017 07:39
[2017-09-22] MEDS: ASPIRIN 325 MG TAB PO SCH (10:06)
--- NOTE | 2017-09-22 10:06 | HHI.PR ---
Subjective Remarks Patient in nad. She is in bed able to go to the chair with some support. Denies headaches, no change in vision no new motor deficits. Speech improving. No n/v/d/c. Denies chest pain or shortness of breath no nausea or vomiting diarrhea or constipation. Patient once diets to be advance. Discussed with speech therapy patient will have a swallow evaluation with barium. Family at bedside Objective Vitals Vital Signs Date Time Temp Pulse Resp B/P (MAP) Pulse Ox O2 Delivery O2 Flow Rate FiO2 09/22/17 08:57 98.4 85 19 162/81 (108) 100 09/22/17 08:00 119 09/22/17 08:00 98.6 119 34 182/85 (117) 94 09/22/17 04:00 98.5 109 25 185/80 (115) 98 09/22/17 00:00 98.1 104 19 160/90 (113) 97 09/21/17 20:07 Nasal Cannula 3.00 09/21/17 20:00 98.4 109 16 161/108 (125) 91 09/21/17 18:00 106 09/21/17 16:00 95 09/21/17 16:00 98.8 95 23 149/96 (113) 95 09/21/17 14:00 94 09/21/17 12:00 99 09/21/17 12:00 98.9 99 22 137/99 (112) 95 I/O 09/21/17 09/21/17 09/21/17 09/22/17 09/22/17 09/22/17 07:00 15:00 23:00 07:00 15:00 23:00 Intake Total 527 ml 200 ml 240 ml Balance 527 ml 200 ml 240 ml Intake Oral 0 ml 200 ml 240 ml IV Total 527 ml # Voids 0 2 5 # Bowel Movements 0 2 1 Result Diagram: 09/22/17 0333 09/22/17 0333 Imaging Last Impressions Neck Magnetic Resonance Angiography 09/21/17 07 Signed Impressions: Service Date/Time: Thursday, September 21, 2017 09:18 - CONCLUSION: Normal examination. Denita Moser MD Head Magnetic Resonance Angiography 09/21/17 07 Signed Impressions: Service Date/Time: Thursday, September 21, 2017 09:18 - CONCLUSION: Slight atherosclerotic changes of distal branches bilaterally, otherwise unremarkable. Denita Moser MD Brain MRI 09/21/17 0700 Signed Impressions: Service Date/Time: Thursday, September 21, 2017 09:18 - CONCLUSION: Acute infarction on the left without hemorrhage or mass effect. Denita Moser MD Head CT 09/20/17 2251 Signed Impressions: Service Date/Time: Wednesday, September 20, 2017 22:51 - CONCLUSION: 1. Atrophy and extensive chronic small vessel ischemic change. 2. No acute intracranial abnormality. Gui Cid Jr., MD Chest X-Ray 09/20/172224 Signed Impressions: Service Date/Time: Wednesday, September 20, 2017 23:44 - CONCLUSION: 1. Cardiomegaly and chronic interstitial changes. 2. No acute intrathoracic abnormality. Gui Cid Jr., MD Objective Remarks GENERAL: Well-nourished well-developed elderly female who is sitting up in the ED stretcher, agitated and indicating that she needs to urinate. CARDIOVASCULAR: Irregularly irregular with rate in the 110s. No murmurs rubs or gallops RESPIRATORY: Breathing comfortably with No accessory muscle use. Clear to auscultation. Breath sounds equal bilaterally. GASTROINTESTINAL: Abdomen soft, non-tender, nondistended. Bowel sounds present. MUSCULOSKELETAL: Extremities without clubbing, cyanosis, or edema. Deformities of toes on right foot. NEUROLOGICAL: Awake and alert. Aphasic, utters sounds only, no words. Extraocular movements are full. Visual juarez appear intact. Normal tongue protrusion. R facial droop. Strength 4+-5/5 biceps/triceps, 5/5 hip flexion/ hamstrings/ankle dorsiflexion/plantar flexion. A/P Problem List: (1) Atrial fibrillation ICD Code: I48.91 - Unspecified atrial fibrillation Status: Chronic (2) Bacteriuria ICD Code: R82.71 - Bacteriuria (3) Aphasia ICD Code: R47.01 - Aphasia Status: Acute (4) HTN (hypertension) ICD Code: I10 - Essential (primary) hypertension Status: Chronic (5) HLD (hyperlipidemia) ICD Code: E78.5 - Hyperlipidemia, unspecified Status: Chronic (6) CKD (chronic kidney disease) stage 3, GFR 30-59 ml/min ICD Code: N18.3 - Chronic kidney disease, stage 3 (moderate) Status: Chronic (7) Acute ischemic stroke ICD Code: I63.9 - Cerebral infarction, unspecified Status: Acute (8) Warfarin anticoagulation 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 Neurology consult, Dr. Horn PT/OT/speech therapy consult Check echo, hemoglobin A1c, lipid panel RESP: History of tobacco abuse Nasal cannula wean as tolerated. Monitor for airway protection. Patient is agreeable to short term intubation if needed for airway protection Albuterol as needed for wheezing CV: Atrial fibrillation on chronic anticoagulation with warfarin Essential hypertension Hyperlipidemia Monitor hemodynamics. Permissive hypertension Labetalol as needed for systolic blood pressure greater than 220/120. 0.9 NaCl at 70 mL per hour Hold warfarin as unable to take po. Dr. Ramirez discussed with Dr. Calvo, avoid anticoagulation due to concern for hemorrhagic conversion. Hold home medications at this point because unable to take po: Metoprolol 50 g by mouth twice a day, pravastatin 20 mill grams by mouth daily, Lasix 40 mill grams by mouth daily, potassium chloride 20 mEq by mouth daily GI: Chronic Mild AST elevation ?statin. Does not preclude statin use. Nothing by mouth. Speech therapy to evaluate swallow. Bowel regimen FEN/RENAL: Chronic kidney disease stage III Purewick catheter Monitor intake and output. Monitor electrolytes. Replace electrolytes as indicated per ICU electrolyte replacement protocol. ID: Bacteruria Followup urine culture. HEME: Chronic anticoagulation with warfarin for Afib INR 1.2 on presentation. Patient reportedly had an INR of 1.9 on 09/15/17 and was instructed to avoid vitamin K containing foods. Unclear what warfarin dose she was on. ENDO: TSH elevated Follow-up free T4/free T3 Euglycemic. Follow-up hemogram A1c. PROPH: SCDs for DVT prophylaxis. Pharmacologic DVT prophylaxis when appropriate in coordination with neurology. Famotidine for stress ulcer prophylaxis. ACCESS: Peripheral IV providing adequate access at this time CODE STATUS was discussed previously with patient while [id number] and son were at bedside. Patient stated she would be agreeable to intubation short- term if needed for airway protection. She would not want ACLS or intubation in the event of pulseless arrest. Code status alternate code intubation only Discussed with pt, nurse, family at bedside DC plan pending barium swallow, DC when improved. Problem Qualifiers (1) HTN (hypertension): Qualified Codes: I10 - Essential (primary) hypertension Yuni English MD Sep 22, 2017 10:06
--- NOTE | 2017-09-22 13:19 | RADRPT ---
EXAM DATE/TIME: 09/22/2017 12:03 [facility] COMPARISON: No previous studies available for comparison. INDICATIONS : Dysphagia. FLUORO TIME: 2.6 minutes IMAGE COUNT: 1 CONTRAST: Dose as prescribed by speech pathologist. MEDICAL HISTORY : Renal insufficiency, chronic. Hypertension. SURGICAL HISTORY : Cholecystectomy. Hysterectomy. Cataracts. Right arm rodding ENCOUNTER: Initial ACUITY: 1 day PAIN SCORE: 0/10 LOCATION: Bilateral Esophagus FINDINGS: A modified barium swallow was performed with speech pathology. Patient was given a variety of liquids to swallow. There is no aspiration. Minimal oral and coordination. For a full detailed report, see report by the speech pathologist. CONCLUSION: Negative for aspiration. Esau Garcia MD FACR on September 22, 2017 at 13:17 Board Certified Radiologist. This report was verified electronically.
[2017-09-22] MEDS ORDERED: WARFARIN SOD 5 MG TAB PO ONE (16:00)
--- NOTE | 2017-09-22 17:39 | HHI.PR ---
Review/Management Daily Summary 09/22 she was much better this am, more alert and verbal aphasia less severe moved right limbs better and facial weakness less severe spoke with dr bustillos this am tarasnox bridging to [place] spoke with her son this pm over phone she will benefit of rehab, might be a good candidate for [facility] Subjective Subjective Comments No acute events reported No headache Active Medications Current Medications Medications (Trade) Dose Ordered Sig/Nhan Route Start Time Stop Time Status Last Admin (NS Flush) 2 ml UNSCH PRN IV FLUSH 09/21/17 00:45 (NS Flush) 2 ml BID IV FLUSH 09/21/17 09:00 09/22/17 07:24 (Pepcid Inj) 20 mg Q12HR IV PUSH 09/21/17 09:00 09/22/17 07:23 (Pepcid) 20 mg Q12HR PO 09/21/17 09:00 09/22/17 07:23 (Zofran Inj) 4 mg Q6H PRN IV PUSH 09/21/17 00:45 (Albuterol Neb) 2.5 mg Q2HR NEB PRN INH 09/21/17 00:45 Miscellaneous Information 1 Q361D XX 09/21/17 00:45 09/21/17 00:45 (Chlorhexidine 2% Cloth) 3 pack Taper DAILY@04 TOP 09/21/17 04:00 09/17/18 03:59 09/22/17 04:00 (Chlorhexidine 2% Cloth) 3 pack UNSCH PRN TOP 09/21/17 00:45 (Lian-Colace) 1 tab BID PO 09/21/17 09:00 09/22/17 07:24 (Milk Of Magnesia Liq) 30 ml Q12H PRN PO 09/21/17 00:45 (Senokot) 17.2 mg Q12H PRN PO 09/21/17 00:45 (Dulcolax Supp) 10 mg DAILY PRN RECTAL 09/21/17 00:45 (Lactulose Liq) 30 ml DAILY PRN PO 09/21/17 00:45 (Tylenol Supp) 650 mg Q6H PRN RECTAL 09/21/17 02:45 (Trandate Inj) 10 mg Q4H PRN IV PUSH 09/21/17 05:00 (Apresoline Inj) 10 mg Q4H PRN IV PUSH 09/21/17 05:00 (Ultram) 50 mg Q8H PRN PO 09/21/17 13:00 09/21/17 22:33 (Lovenox Inj) 60 mg Q12H SQ 09/21/17 18:00 09/22/17 05:23 (Lasix) 40 mg DAILY PO 09/22/17 09:00 09/22/17 07:24 (Lopressor) 50 mg BID PO 09/22/17 09:00 09/22/17 07:23 (KCl) 20 meq DAILY PO 09/22/17 09:00 09/22/17 07:23 (Pravachol) 20 mg DAILY PO 09/22/17 09:00 09/22/17 07:23 Pharmacy Profile Note 0 ml @ 0 mls/hr UNSCH OTHER 09/22/17 06:45 (Aspirin) 325 mg DAILY PO 09/22/17 09:00 09/22/17 10:06 (Coumadin) 2.5 mg DAILY@1600 PO 09/23/17 16:00 Allergies Allergies Coded Allergies Sulfa (Sulfonamide Antibiotics) (Unverified Allergy, Severe, UNK, 09/20/17) penicillin G (Unverified Allergy, Severe, Hives, 09/20/17) Exam I&O / VS 09/22/17 09/22/17 09/23/17 15:00 23:00 07:00 Intake Total 480 ml Balance 480 ml Intake Oral 480 ml # Voids 4 # Bowel Movements 2 Vital Signs Date Time Temp Pulse Resp B/P (MAP) Pulse Ox O2 Delivery O2 Flow Rate FiO2 09/22/17 16:00 97.3 84 18 138/91 (107) 96 09/22/17 12:00 97.1 80 19 138/70 (92) 98 09/22/17 08:57 98.4 85 19 162/81 (108) 100 09/22/17 08:00 119 09/22/17 08:00 98.6 119 34 182/85 (117) 94 09/22/17 04:00 98.5 109 25 185/80 (115) 98 09/22/17 00:00 98.1 104 19 160/90 (113) 97 09/21/17 20:07 Nasal Cannula 3.00 09/21/17 20:00 98.4 109 16 161/108 (125) 91 09/21/17 18:00 106 Objective Radiology Results Last 48 hours Impressions Modified Barium Swallow 09/22/17 0000 Signed Impressions: Service Date/Time: Friday, September 22, 2017 12:03 - CONCLUSION: Negative for aspiration. Esau Garcia MD FACR Neck Magnetic Resonance Angiography 09/21/17 0700 Signed Impressions: Service Date/Time: Thursday, September 21, 2017 09:18 - CONCLUSION: Normal examination. Denita Moser MD Head Magnetic Resonance Angiography 09/21/17 0700 Signed Impressions: Service Date/Time: Thursday, September 21, 2017 09:18 - CONCLUSION: Slight atherosclerotic changes of distal branches bilaterally, otherwise unremarkable. Denita Moser MD Brain MRI 09/21/17 0700 Signed Impressions: Service Date/Time: Thursday, September 21, 2017 09:18 - CONCLUSION: Acute infarction on the left without hemorrhage or mass effect. Denita Moser MD Head CT 09/20/172250 Signed Impressions: Service Date/Time: Wednesday, September 20, 2017 22:51 - CONCLUSION: 1. Atrophy and extensive chronic small vessel ischemic change. 2. No acute intracranial abnormality. Gui Bustillos Jr., MD Chest X-Ray 09/20/172224 Signed Impressions: Service Date/Time: Wednesday, September 20, 2017 23:44 - CONCLUSION: 1. Cardiomegaly and chronic interstitial changes. 2. No acute intrathoracic abnormality. Gui Bustillos Jr., MD Micro and Labs Laboratory Tests Test 09/22/17 03:33 White Blood Count 10.5 Red Blood Count 3.93 Hemoglobin 12.1 Hematocrit 36.1 Mean Corpuscular Volume 91.8 Mean Corpuscular Hemoglobin 30.7 Mean Corpuscular Hemoglobin Concent 33.4 Red Cell Distribution Width 15.1 Platelet Count 186 Mean Platelet Volume 9.2 Neutrophils (%) (Auto) 79.8 Lymphocytes (%) (Auto) 11.3 Monocytes (%) (Auto) 7.9 Eosinophils (%) (Auto) 0.5 Basophils (%) (Auto) 0.5 Neutrophils # (Auto) 8.4 Lymphocytes # (Auto) 1.2 Monocytes # (Auto) 0.8 Eosinophils # (Auto) 0.1 Basophils # (Auto) 0.1 CBC Comment DIFF FINAL Differential Comment Prothrombin Time 13.3 Prothromb Time International Ratio 1.3 Blood Urea Nitrogen 20 Creatinine 0.92 Random Glucose 114 Total Protein 7.1 Albumin 3.5 Calcium Level 9.2 Phosphorus Level 2.5 Magnesium Level 1.9 Alkaline Phosphatase 89 Aspartate Amino Transf (AST/SGOT) 26 Alanine Aminotransferase (ALT/SGPT) 17 Total Bilirubin 1.1 Sodium Level 145 Potassium Level 3.7 Chloride Level 110 Carbon Dioxide Level 25.9 Anion Gap 9 Estimat Glomerular Filtration Rate 57 Date/Time Source Procedure Growth Status 09/21/17 00:15 Urine Random Urine Urine Culture - Final 50-100,000 CFU/ML MIXED GUY... Complete Lillian Briceño MD Sep 22, 2017 17:39
[2017-09-22] MEDS: traMADol HCL 50 MG TAB PO PRN (22:09)
[2017-09-23] VITALS: PULSE 95
[2017-09-23 00:15] VITALS: BP 156/89; PULSE 101; RESP 19; TEMP 98.8; O2SAT 98
[2017-09-23 04:00] VITALS: PULSE 91
[2017-09-23 05:30] VITALS: BP 152/80; PULSE 89; RESP 21; TEMP 97.8; O2SAT 99
[2017-09-23 06:06] LABS: INTERNATIONAL NORMALIZED RATIO 1.4 RATIO; PROTHROMBIN TIME - PATIENT 14.3 SEC (9.8-11.6)
[2017-09-23] MEDS: ENOXAPARIN SODIUM 60 MG/0.6 ML SYRINGE SQ SCH (06:11)
--- NOTE | 2017-09-23 08:02 | HHI.PR ---
Review/Management Daily Summary 09/22 she was much better this am, more alert and verbal aphasia less severe moved right limbs better and facial weakness less severe spoke with dr bustillos this am tarasnox bridging to [place] spoke with her son this pm over phone she will benefit of rehab, might be a good candidate for [facility] 09/23 even better today, more fluent speech just woke up no headaches no obvious motor deficits pt/ot/gait and rehab inr still low Subjective Subjective Comments No acute events reported No headache No chest pain No dyspnea Active Medications Current Medications Medications (Trade) Dose Ordered Sig/Nhan Route Start Time Stop Time Status Last Admin (NS Flush) 2 ml UNSCH PRN IV FLUSH 09/21/17 00:45 (NS Flush) 2 ml BID IV FLUSH 09/21/17 09:00 09/22/17 22:10 (Pepcid Inj) 20 mg Q12HR IV PUSH 09/21/17 09:00 09/22/17 07:23 (Pepcid) 20 mg Q12HR PO 09/21/17 09:00 09/22/17 21:00 (Zofran Inj) 4 mg Q6H PRN IV PUSH 09/21/17 00:45 (Albuterol Neb) 2.5 mg Q2HR NEB PRN INH 09/21/17 00:45 Miscellaneous Information 1 Q361D XX 09/21/17 00:45 09/21/17 00:45 (Chlorhexidine 2% Cloth) 3 pack Taper DAILY@04 TOP 09/21/17 04:00 09/17/18 03:59 09/22/17 04:00 (Chlorhexidine 2% Cloth) 3 pack UNSCH PRN TOP 09/21/17 00:45 (Lian-Colace) 1 tab BID PO 09/21/17 09:00 09/22/17 21:00 (Milk Of Magnesia Liq) 30 ml Q12H PRN PO 09/21/17 00:45 (Senokot) 17.2 mg Q12H PRN PO 09/21/17 00:45 (Dulcolax Supp) 10 mg DAILY PRN RECTAL 09/21/17 00:45 (Lactulose Liq) 30 ml DAILY PRN PO 09/21/17 00:45 (Tylenol Supp) 650 mg Q6H PRN RECTAL 09/21/17 02:45 (Trandate Inj) 10 mg Q4H PRN IV PUSH 09/21/17 05:00 (Apresoline Inj) 10 mg Q4H PRN IV PUSH 09/21/17 05:00 (Ultram) 50 mg Q8H PRN PO 09/21/17 13:00 09/22/17 22:09 (Lovenox Inj) 60 mg Q12H SQ 09/21/17 18:00 09/23/17 06:11 (Lasix) 40 mg DAILY PO 09/22/17 09:00 09/22/17 07:24 (Lopressor) 50 mg BID PO 09/22/17 09:00 09/22/17 22:09 (KCl) 20 meq DAILY PO 09/22/17 09:00 09/22/17 07:23 (Pravachol) 20 mg DAILY PO 09/22/17 09:00 09/22/17 07:23 Pharmacy Profile Note 0 ml @ 0 mls/hr UNSCH OTHER 09/22/17 06:45 (Aspirin) 325 mg DAILY PO 09/22/17 09:00 09/22/17 10:06 (Coumadin) 2.5 mg DAILY@1600 PO 09/23/17 16:00 Allergies Allergies Coded Allergies Sulfa (Sulfonamide Antibiotics) (Unverified Allergy, Severe, UNK, 09/20/17) penicillin G (Unverified Allergy, Severe, Hives, 09/20/17) Exam I&O / VS Vital Signs Date Time Temp Pulse Resp B/P (MAP) Pulse Ox O2 Delivery O2 Flow Rate FiO2 09/23/17 05:30 97.8 89 21 152/80 (104) 99 09/23/17 04:00 91 09/23/17 00:15 98.8 101 19 156/89 (111) 98 09/23/17 00:00 95 09/22/17 20:30 98.1 110 18 164/92 (116) 98 09/22/17 20:08 96 Nasal Cannula 3.00 09/22/17 20:00 92 09/22/17 16:00 97.3 84 18 138/91 (107) 96 09/22/17 12:00 97.1 80 19 138/70 (92) 98 09/22/17 08:57 98.4 85 19 162/81 (108) 100 Objective Micro and Labs Laboratory Tests Test 09/23/17 04:58 Prothrombin Time 14.3 Prothromb Time International Ratio 1.4 Date/Time Source Procedure Growth Status 09/21/17 00:15 Urine Random Urine Urine Culture - Final 50-100,000 CFU/ML MIXED GUY... Complete Lillian Briceño MD Sep 23, 2017 08:02
[2017-09-23] MEDS: DOCUSATE SODIUM 50 MG/SENNA 8.6 MG TAB PO SCH (08:04)
[2017-09-23] MEDS: PRAVASTATIN SOD 20 MG TAB PO SCH (08:04)
[2017-09-23] MEDS: FAMOTIDINE 20 MG TAB PO SCH (08:05)
[2017-09-23] MEDS: ASPIRIN 325 MG TAB PO SCH (08:05)
[2017-09-23] MEDS: POTASSIUM CHLORIDE 20 MEQ CONTROLLED RELEASE TAB PO SCH (08:06)
[2017-09-23] MEDS: SODIUM CHLORIDE 0.9% FLUSH 10 ML FLUSH IV FLUSH SCH (08:07)
[2017-09-23] MEDS: FAMOTIDINE 20 MG/2 ML VIAL IV PUSH SCH (08:08)
[2017-09-23] MEDS: METOPROLOL TARTRATE 50 MG TAB PO SCH (08:11)
[2017-09-23] MEDS: FUROSEMIDE 40 MG TAB PO SCH (08:15)
[2017-09-23] MEDS ORDERED: ENOX60P SQ (08:58)
[2017-09-23] MEDS ORDERED: TRAM50TA PO (08:58)
[2017-09-23] MEDS ORDERED: PERI PO (08:58)
[2017-09-23] MEDS ORDERED: ASA325 PO (08:58)
--- NOTE | 2017-09-23 09:00 | HHI.DS ---
Discharge Summary Admission Date Sep 20, 2017 at 23:46 Discharge Date: Sep 23, 2017 Admitting Diagnosis acute CVA. Atrial fibrillation. On anticoagulation. (1) Atrial fibrillation ICD Code: I48.91 - Unspecified atrial fibrillation Diagnosis: Secondary Status: Chronic (2) Bacteriuria ICD Code: R82.71 - Bacteriuria Diagnosis: Secondary Status: Acute (3) Aphasia ICD Code: R47.01 - Aphasia Diagnosis: Principal Status: Acute (4) HTN (hypertension) ICD Code: I10 - Essential (primary) hypertension Diagnosis: Secondary Status: Chronic (5) HLD (hyperlipidemia) ICD Code: E78.5 - Hyperlipidemia, unspecified Diagnosis: Secondary Status: Chronic (6) CKD (chronic kidney disease) stage 3, GFR 30-59 ml/min ICD Code: N18.3 - Chronic kidney disease, stage 3 (moderate) Diagnosis: Secondary Status: Chronic (7) Acute ischemic stroke ICD Code: I63.9 - Cerebral infarction, unspecified Diagnosis: Principal Status: Acute (8) Warfarin anticoagulation ICD Code: Z79.01 - shelter (current) use of anticoagulants Diagnosis: Secondary Status: Chronic (9) TSH elevation ICD Code: R94.6 - Abnormal results of thyroid function studies Diagnosis: Secondary Status: Acute (10) Elevated AST (SGOT) ICD Code: R74.0 - Nonspecific elevation of levels of transaminase and lactic acid dehydrogenase [LDH] Diagnosis: Secondary Status: Chronic Procedures none Brief History - From Admission 87-year-old female with past medical history of hypertension, atrial fibrillation on chronic anticoagulation with Coumadin, hyperlipidemia, prior tobacco abuse who presented to [facility] emergency department as a stroke alert. Her son states that she was sitting in a recliner around 9 pm and he was speaking to her and she did not respond but he thought she might be sleeping. Then she began to move around restlessly in the chair and had apparent aphasia and facial droop. [facility] was summoned and when they arrived her symptoms had completely resolved. She was speaking normally. Then she stood up and symptoms recurred so [facility] brought her in as a stroke alert. CT brain demonstrated atrophy with chronic small vessel ischemic changes. She is on warfarin but her INR was 1.2. Case was discussed with Dr. Horn who stated that TPA could be administered as long as patient and family accepting of increased risk of hemorrhage. Patient refused TPA. Dr. Horn recommended ASA and obtain MRI/MRA in the morning. Recommended against anticoagulation. CBC/BMP: 09/22/17 0333 09/22/17 0333 Significant Findings Laboratory Tests Test 09/20/17 22:30 09/21/17 00:15 09/21/17 02:05 09/21/17 04:13 Eosinophils (%) (Auto) 4.4 % (0.0-4.0) Prothrombin Time 12.3 SEC (9.8-11.6) Blood Urea Nitrogen 27 MG/DL (7-18) Creatinine 1.39 MG/DL (0.50-1.00) Random Glucose 111 MG/DL (74-106) Alkaline Phosphatase 125 U/L (45-117) Aspartate Amino Transf (AST/SGOT) 38 U/L (15-37) Estimat Glomerular Filtration Rate 36 ML/MIN (>89) Thyroid Stimulating Hormone 3rd Gen 3.770 uIU/ML (0.358-3.740) Urine Turbidity HAZY (CLEAR) Urine Protein 30 mg/dL (NEG-TRACE) Urine Occult Blood SMALL (NEG) Urine Leukocyte Esterase MOD (NEG) Urine RBC 13 /hpf (0-3) Urine WBC 6 /hpf (0-5) Urine Bacteria RARE /hpf (NONE) Urine Mucus FEW /lpf (OCC) Triglycerides Level 35 MG/DL (42-150) HDL Cholesterol 64.9 MG/DL (40.0-60.0) Test 09/22/17 03:33 09/23/17 04:58 Red Blood Count 3.93 MIL/MM3 (4.00-5.30) Neutrophils (%) (Auto) 79.8 % (16.0-70.0) Neutrophils # (Auto) 8.4 TH/MM3 (1.8-7.7) Prothrombin Time 13.3 SEC (9.8-11.6) 14.3 SEC (9.8-11.6) Blood Urea Nitrogen 20 MG/DL (7-18) Random Glucose 114 MG/DL (74-106) Total Bilirubin 1.1 MG/DL (0.2-1.0) Chloride Level 110 MEQ/L (98-107) Estimat Glomerular Filtration Rate 57 ML/MIN (>89) Imaging Last Impressions Modified Barium Swallow 09/22/17 0000 Signed Impressions: Service Date/Time: Friday, September 22, 2017 12:03 - CONCLUSION: Negative for aspiration. Esau Garcia MD FACR Neck Magnetic Resonance Angiography 09/21/17 0700 Signed Impressions: Service Date/Time: Thursday, September 21, 2017 09:18 - CONCLUSION: Normal examination. Denita Moser MD Head Magnetic Resonance Angiography 09/21/17 07 Signed Impressions: Service Date/Time: Thursday, September 21, 2017 09:18 - CONCLUSION: Slight atherosclerotic changes of distal branches bilaterally, otherwise unremarkable. Denita Moser MD Brain MRI 09/21/17 07 Signed Impressions: Service Date/Time: Thursday, September 21, 2017 09:18 - CONCLUSION: Acute infarction on the left without hemorrhage or mass effect. Denita Moser MD Head CT 09/20/171 Signed Impressions: Service Date/Time: Wednesday, September 20, 2017 22:51 - CONCLUSION: 1. Atrophy and extensive chronic small vessel ischemic change. 2. No acute intracranial abnormality. Gui Cid Jr., MD Chest X-Ray 09/20/[id number] Signed Impressions: Service Date/Time: Wednesday, September 20, 2017 23:44 - CONCLUSION: 1. Cardiomegaly and chronic interstitial changes. 2. No acute intrathoracic abnormality. Gui Cid Jr., MD PE at Discharge GENERAL: Well-nourished well-developed elderly female who is sitting up in the ED stretcher, agitated and indicating that she needs to urinate. CARDIOVASCULAR: Irregularly irregular with rate in the 110s. No murmurs rubs or gallops RESPIRATORY: Breathing comfortably with No accessory muscle use. Clear to auscultation. Breath sounds equal bilaterally. GASTROINTESTINAL: Abdomen soft, non-tender, nondistended. Bowel sounds present. MUSCULOSKELETAL: Extremities without clubbing, cyanosis, or edema. Deformities of toes on right foot. NEUROLOGICAL: Awake and alert. Aphasic, utters sounds only, no words. Extraocular movements are full. Visual juarez appear intact. Normal tongue protrusion. R facial droop. Strength 4+-5/5 biceps/triceps, 5/5 hip flexion/ hamstrings/ankle dorsiflexion/plantar flexion. Pt update on day of discharge Speech improved significantly. No new motor deficit. Hospital Course 87-year-old female with past medical history of hypertension, atrial fibrillation on chronic anticoagulation with Coumadin, hyperlipidemia, prior tobacco abuse who presented to [facility] emergency department as a stroke alert. CT brain demonstrated atrophy with chronic small vessel ischemic changes. She is on warfarin but her INR was 1.2. Neurology Dr. Horn stated that TPA could be administered as long as patient and family accepting of increased risk of hemorrhage. Patient refused TPA. Dr. Horn recommended ASA and obtain MRI/MRA. Recommended against anticoagulation. Patient with Acute ischemic stroke, Aphasia, improving PT/OT/speech therapy consult. Passed swallow eval and modified barium NL. Hemoglobin A1c normal. lipid panel reviewed continue statin Atrial fibrillation on chronic anticoagulation with warfarin. Essential hypertension. Hyperlipidemia. Keep normotensive normoglycemic. Restarted Coumadin CODE STATUS was discussed previously with patient while [id number] and son were at bedside. Patient stated she would be agreeable to intubation short- term if needed for airway protection. She would not want ACLS or intubation in the event of pulseless arrest. Code status alternate code intubation only Improved, cleared for DC by consultants, DC to [facility] in stable condition to f /u as OP with PCP and consultants. Pt Condition on Discharge: Stable Discharge Disposition: Rehab Inpatient Discharge Time: > 30 minutes Discharge Instructions DIET: Follow Instructions for: Heart Healthy Diet Activities you can perform: Regular-No Restrictions Follow up Referrals: Neurology - 1 Week PCP Follow-up - 2-3 Days New Orders: PT/INR - 2-3 Days New Medications: Aspirin (Px Aspirin) 325 Mg Tab 325 MG PO DAILY for Blood Clot Prevention, #30 TAB Enoxaparin Inj (Lovenox Inj) 60 Mg/0.6 Ml Syr 60 MG SQ Q12H for Blood Clot Prevention, #30 INJECTION discontinue lovenox once INR therapeutic range 2-3 Sennosides-Docusate Sodium (Gnp Senna Plus 8.6-50 mg) 8.6 Mg-50 Mg Tab 1 TAB PO BID for Constipation, #60 TAB Continued Medications: Furosemide (Furosemide) 40 Mg Tab 40 MG PO DAILY, #30 TAB 0 Refills Metoprolol Tartrate (Metoprolol Tartrate) 50 Mg Tab 50 MG PO BID, #60 TAB 0 Refills Potassium Chloride ER (Potassium Chloride ER) 20 Meq Tab 20 MEQ PO DAILY for Electrolyte Replacement, #30 TAB 0 Refills Pravastatin (Pravastatin) 20 Mg Tab 20 MG PO DAILY for Cholesterol Management, #30 TAB 0 Refills Tramadol (Tramadol) 50 Mg Tab 50 MG PO Q8H PRN for PAIN, #20 TAB 0 Refills (This prescription has been renewed ) Warfarin (Warfarin) 1 Mg Tab 1 MG PO Wednesday,Wednesday, for Blood Clot Prevention, #30 TAB 0 Refills [phyto martha-mag plus] () 1 TAB PO DAILY Yuni English MD Sep 23, 2017 09:00
--- NOTE | 2017-09-23 09:03 | HHI.PR ---
Subjective Remarks Feels better improving.No n/v/d/c. Denies chest coombs or sob. Awaiting to go to rehab and imprpve. Discussed with patient and son at bedside. Objective Vitals Vital Signs Date Time Temp Pulse Resp B/P (MAP) Pulse Ox O2 Delivery O2 Flow Rate FiO2 09/23/17 05:30 97.8 89 21 152/80 (104) 99 09/23/17 04:00 91 09/23/17 00:15 98.8 101 19 156/89 (111) 98 09/23/17 00:00 95 09/22/17 20:30 98.1 110 18 164/92 (116) 98 09/22/17 20:08 96 Nasal Cannula 3.00 09/22/17 20:00 92 09/22/17 16:00 97.3 84 18 138/91 (107) 96 09/22/17 12:00 97.1 80 19 138/70 (92) 98 I/O 09/22/17 09/22/17 09/22/17 09/23/17 09/23/17 09/23/17 07:00 15:00 23:00 07:00 15:00 23:00 Intake Total 240 ml 480 ml 400 ml Output Total 1 ml Balance 240 ml 480 ml 399 ml Intake Oral 240 ml 480 ml 400 ml Output Urine Total 1 ml # Voids 5 4 # Bowel Movements 1 4 0 Result Diagram: 09/22/17 0333 09/22/17 0333 Imaging Last Impressions Modified Barium Swallow 09/22/17 0000 Signed Impressions: Service Date/Time: Friday, September 22, 2017 12:03 - CONCLUSION: Negative for aspiration. Esau Garcia MD FACR Neck Magnetic Resonance Angiography 09/21/17699 Signed Impressions: Service Date/Time: Thursday, September 21, 2017 09:18 - CONCLUSION: Normal examination. Denita Moser MD Head Magnetic Resonance Angiography 09/21/17699 Signed Impressions: Service Date/Time: Thursday, September 21, 2017 09:18 - CONCLUSION: Slight atherosclerotic changes of distal branches bilaterally, otherwise unremarkable. Denita Moser MD Brain MRI 09/21/17699 Signed Impressions: Service Date/Time: Thursday, September 21, 2017 09:18 - CONCLUSION: Acute infarction on the left without hemorrhage or mass effect. Denita Moser MD Head CT 09/20/17 2251 Signed Impressions: Service Date/Time: Wednesday, September 20, 2017 22:51 - CONCLUSION: 1. Atrophy and extensive chronic small vessel ischemic change. 2. No acute intracranial abnormality. Gui Cid Jr., MD Chest X-Ray 09/20/175 Signed Impressions: Service Date/Time: Wednesday, September 20, 2017 23:44 - CONCLUSION: 1. Cardiomegaly and chronic interstitial changes. 2. No acute intrathoracic abnormality. Gui Cid Jr., MD Objective Remarks GENERAL: Well-nourished well-developed elderly female who is sitting up in the ED stretcher, agitated and indicating that she needs to urinate. CARDIOVASCULAR: Irregularly irregular with rate in the 110s. No murmurs rubs or gallops RESPIRATORY: Breathing comfortably with No accessory muscle use. Clear to auscultation. Breath sounds equal bilaterally. GASTROINTESTINAL: Abdomen soft, non-tender, nondistended. Bowel sounds present. MUSCULOSKELETAL: Extremities without clubbing, cyanosis, or edema. Deformities of toes on right foot. NEUROLOGICAL: Awake and alert. Aphasic, utters sounds only, no words. Extraocular movements are full. Visual juarez appear intact. Normal tongue protrusion. R facial droop. Strength 4+-5/5 biceps/triceps, 5/5 hip flexion/ hamstrings/ankle dorsiflexion/plantar flexion. Procedures none A/P Problem List: (1) Atrial fibrillation ICD Code: I48.91 - Unspecified atrial fibrillation Status: Chronic (2) Bacteriuria ICD Code: R82.71 - Bacteriuria Status: Acute (3) Aphasia ICD Code: R47.01 - Aphasia Status: Acute (4) HTN (hypertension) ICD Code: I10 - Essential (primary) hypertension Status: Chronic (5) HLD (hyperlipidemia) ICD Code: E78.5 - Hyperlipidemia, unspecified Status: Chronic (6) CKD (chronic kidney disease) stage 3, GFR 30-59 ml/min ICD Code: N18.3 - Chronic kidney disease, stage 3 (moderate) Status: Chronic (7) Acute ischemic stroke ICD Code: I63.9 - Cerebral infarction, unspecified Status: Acute (8) Warfarin anticoagulation ICD Code: Z79.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 Neurology consult, Dr. Horn PT/OT/speech therapy consult hemoglobin A1c normal. lipid panel reviewed continue statin Passed modified barium =, advance diet to regular. RESP: History of tobacco abuse Nasal cannula wean as tolerated. Monitor for airway protection. Patient is agreeable to short term intubation if needed for airway protection Albuterol as needed for wheezing CV: Atrial fibrillation on chronic anticoagulation with warfarin Essential hypertension Hyperlipidemia Monitor hemodynamics. Permissive hypertension Labetalol as needed for systolic blood pressure greater than 220/120. 0.9 NaCl at 70 mL per hour Hold warfarin as unable to take po. Dr. Ramirez discussed with Dr. Calvo, avoid anticoagulation due to concern for hemorrhagic conversion. Hold home medications at this point because unable to take po: Metoprolol 50 g by mouth twice a day, pravastatin 20 mill grams by mouth daily, Lasix 40 mill grams by mouth daily, potassium chloride 20 mEq by mouth daily GI: Chronic Mild AST elevation ?statin. Does not preclude statin use. Continue statin Nothing by mouth. Speech therapy to evaluate swallow. Bowel regimen FEN/RENAL: Chronic kidney disease stage III Purewick catheter Monitor intake and output. Monitor electrolytes. Replace electrolytes as indicated per ICU electrolyte replacement protocol. ID: Bacteruria on admission Followup urine culture with normal santos HEME: Chronic anticoagulation with warfarin for Afib INR 1.2 on presentation. Patient reportedly had an INR of 1.9 on 09/15/17 and was instructed to avoid vitamin K containing foods. Unclear what warfarin dose she was on. ENDO: TSH elevated Follow-up free T4/free T3 Euglycemic. Follow-up hemogram A1c. PROPH: SCDs for DVT prophylaxis. Pharmacologic DVT prophylaxis when appropriate in coordination with neurology. Famotidine for stress ulcer prophylaxis. ACCESS: Peripheral IV providing adequate access at this time CODE STATUS was discussed previously with patient while [id number] and son were at bedside. Patient stated she would be agreeable to intubation short- term if needed for airway protection. She would not want ACLS or intubation in the event of pulseless arrest. Code status alternate code intubation only Discussed with pt, nurse, family at bedside DC plan to DC to [facility] today Problem Qualifiers (1) HTN (hypertension): Qualified Codes: I10 - Essential (primary) hypertension Yuni English MD Sep 23, 2017 09:03
[2017-09-23 09:22] VITALS: BP 186/85; PULSE 94; RESP 18; TEMP 97.9; O2SAT 96
[2017-09-23 11:41] VITALS: PULSE 110
[2017-09-23] MEDS ORDERED: WARFARIN SOD 2.5 MG TAB PO SCH (16:00)
[2017-09-23] MEDS ORDERED: WARFARIN SOD 2.5 MG TAB PO ONE (16:00)
== END 2017-09-23 13:05 | DRG 65 ==
LOC: NEPC 22:08 → NEDA 23:46 → HIMW 09-21 01:45 → N05A 09-22 08:21
PROVIDERS: ADMIT Hospitalist; ATTEND Hospitalist
DX: I63.512 Cerebral infarction due to unspecified occlusion or stenosis of left middle cerebral artery (principal); G81.91 Hemiplegia, unspecified affecting right dominant side; E11.22 Type 2 diabetes mellitus with diabetic chronic kidney disease; I48.2 Chronic atrial fibrillation; N18.3 Chronic kidney disease, stage 3 (moderate); R47.01 Aphasia; I12.9 Hypertensive chronic kidney disease with stage 1 through stage 4 chronic kidney disease, or unspecified chronic kidney disease; E78.5 Hyperlipidemia, unspecified; R29.810 Facial weakness; Z87.891 Personal history of nicotine dependence; Z53.20 Procedure and treatment not carried out because of patient's decision for unspecified reasons; Z90.710 Acquired absence of both cervix and uterus; E07.81 Sick-euthyroid syndrome; Z79.01 Long term (current) use of anticoagulants; Z80.3 Family history of malignant neoplasm of breast
CPT/HCPCS: 70450; 70544; 70548; 70551; 71045; 74230; 80053; 80061; 81001; 83036; 83735; 84100; 84439; 84443; 84481; 85025; 85610; 85730; 86850; 86900; 86901; 87086; 87641; 93005; 96360; A9577; J1650; J7030